=== PATIENT | female | born 1950 | race Caucasian/White ===

== ENCOUNTER 2024-03-12 05:59 | Day surgery (SDC) | payer OTHER, BC ==
[2024-03-02 16:21] VITALS: BMI 33.3
[2024-03-12] MEDS ORDERED: MIDAZOLAM HCL 2 MG/2 ML SINGLE DOSE VIAL ONE ×3 (07:20→09:48)
[2024-03-12] MEDS ORDERED: ceFAZolin SODIUM 1 GM VIAL ONE (07:23)
[2024-03-12] MEDS ORDERED: TRANEXAMIC ACID 1000 MG/10 ML VIAL ONE (07:23)
[2024-03-12] MEDS ORDERED: PROPOFOL 20 ML ONE ×3 (07:24→11:40)
[2024-03-12] MEDS ORDERED: VANCOMYCIN 1,000 MG VIAL (RESTRICTED TO ID ONLY) ONE (07:41)
[2024-03-12] MEDS ORDERED: BUPIVACAINE HCL/PF 0.5% (5 MG/ML) 30 ML VIAL IJ ONE (07:42)
[2024-03-12] MEDS ORDERED: BUPIVACAINE HCL/PF 0.5% (5MG/ML) 10 ML VIAL ONE (07:42)
[2024-03-12] MEDS ORDERED: DEXAMETHASONE SOD PHOSPHATE 10 MG/1 ML VIAL ONE (07:42)
[2024-03-12] MEDS ORDERED: ACETAMINOPHEN INJECTION 100 ML ONE (07:43)
[2024-03-12] MEDS ORDERED: ONDANSETRON 4 MG/2 ML VIAL IVPUSH PRN ×2 (08:24→11:42)
[2024-03-12] MEDS ORDERED: KETOROLAC TROMETHAMINE 60 MG/2 ML VIAL ONE (09:36)
[2024-03-12] MEDS ORDERED: BUPIVACAINE HCL/PF 2.5 MG/ML - 30 ML VIAL IJ ONE (09:37)
[2024-03-12] MEDS ORDERED: MAG HYDROX/AL HYDROX/SIMETH 30 ML UNIT-DOSE CUP PO PRN (11:42)
[2024-03-12] MEDS ORDERED: MAGNESIUM HYDROX 2400MG/30ML ORAL SUSPENSION 30 ML CUP PO PRN (11:42)
[2024-03-12] MEDS: CEFAZOLIN 2 GM in DEXTROSE 5%-WATER - 50 ML IVPB ONE (16:42)
[2024-03-12] MEDS: LACTATED RINGERS SOLUTION 1,000 ML IV SCH (16:42)
[2024-03-12] MEDS: TRANEXAMIC ACID 1000 MG/10 ML VIAL IVPUSH ONE (16:43)
[2024-03-12] MEDS: ACETAMINOPHEN 1000 MG/100 ML BAG IVPB SCH (17:46)
[2024-03-12] MEDS: CEFAZOLIN 2 GM/D5W 2 GRAM/50 ML ML IVPB SCH (18:58)
[2024-03-12] MEDS: SENNOSIDES/DOCUSATE COMBO (SENNA PLUS) TABLET (UD) PO SCH (21:34)
[2024-03-12] MEDS: FAMOTIDINE 20 MG TABLET PO SCH (21:35)
[2024-03-12] MEDS: ROSUVASTATIN CA 10 MG TABLET PO SCH (21:35)
[2024-03-12] MEDS: CHLORTHALIDONE 25 MG TABLET PO SCH (21:36)
[2024-03-12] MEDS: ASPIRIN 81 MG CHEWABLE TABLETS PO SCH (21:36)
[2024-03-12] MEDS: PARoxetine HCL 10 MG TABLET PO SCH (21:36)
[2024-03-12] MEDS: oxyCODONE HCL 5 MG TABLET PO PRN (21:37)
[2024-03-12] MEDS ORDERED: CHLORTHALIDONE 25 MG TABLET PO SCH (22:00)
[2024-03-12] MEDS ORDERED: PAROXETINE HCL 37.5 MG PO SCH (22:00)
[2024-03-13] MEDS: oxyCODONE HCL 5 MG TABLET PO PRN (06:09)
[2024-03-13] MEDS: CHOLECALCIFEROL (VIT D3) 1,000 UNIT (25 MCG) TABLET PO SCH (09:09)
[2024-03-13] MEDS: MULTIVITAMINS (DAILY MVI) TABLET (FP) PO SCH (09:09)
[2024-03-13] MEDS: propRANOLol HCL 10 MG TABLET PO ONE (09:09)
[2024-03-13] MEDS: DEXAMETHASONE 4 MG TABLET (FP) PO ONE (09:11)
[2024-03-13 12:57] LABS: HEMATOCRIT 29.6 % (32.4-45.2); HEMOGLOBIN 9.8 G/dL (10.7-15.3); MCH 29.4 pg (25.7-33.7); MCHC 33.1 g/dl (32.0-36.0); MEAN PLT VOLUME 9.3 fl (7.5-11.1); PLATELET COUNT 307.4 10^3/uL (134-434); RBC 3.33 10^6/uL (3.60-5.2); RDW 13.5 % (11.6-15.6); WHITE BLOOD COUNT 19.3 10^3/uL (4.0-10.8)
[2024-03-13 13:09] LABS: INR 1.14 (0.83-1.09); PROTHROMBIN TIME (PATIENT) 12.9 SEC (9.7-13.0)
[2024-03-13 13:27] LABS: CALCIUM 8.8 mg/dl (8.5-10.1); CREATININE 2.2 mg/dl (0.6-1.3); POTASSIUM 4.2 mmol/L (3.5-5.1)
[2024-03-14 08:21] LABS: HEMATOCRIT 28.6 % (32.4-45.2); HEMOGLOBIN 9.5 G/dL (10.7-15.3); MCHC 33.3 g/dl (32.0-36.0); MEAN CELL VOLUME 90.2 fl (80-96); MEAN PLT VOLUME 10.3 fl (7.5-11.1); PLATELET COUNT 272.4 10^3/uL (134-434); RBC 3.17 10^6/uL (3.60-5.2); RDW 13.3 % (11.6-15.6)
[2024-03-14] MEDS: propRANOLol HCL 10 MG TABLET PO SCH (09:45)
[2024-03-14 13:29] VITALS: BP 119/65; PULSE 81; RESP 19; TEMP 98.9
== END 2024-03-14 13:20 | disposition home or self-care (01) ==
LOC: FASUSAT 05:59 → FM/S 15:18 → FASUSAT 03-14 13:20
PROVIDERS: ATTEND Internal Medicine
PROC: 8E0Y0CZ Robotic Assisted Procedure of Lower Extremity, Open Approach (ICD-10-PCS; 2024-03-12)
PROC: 0SRD0J9 Replacement of Left Knee Joint with Synthetic Substitute, Cemented, Open Approach (ICD-10-PCS; principal; 2024-03-12 09:32)
DX: M17.12 Unilateral primary osteoarthritis, left knee (principal)
CPT/HCPCS: 20985; 27447; C1776; S2900; 36415; 73560-TC-LT-FY; 80048; 85027; 85610; 87635; 94760; 97010-GP; 97116-GP; 97162-GP; J0131; J1100